=== PATIENT | male | born 2005 | race African-American/Black ===

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

== ENCOUNTER 2023-11-05 12:58 | Outpatient (CLI) | payer BC, SELFPAY ==
--- NOTE | 2023-11-05 13:00 | US_ITS ---
Patient: RAISA HUMPHRIES Facility:?[facility] Patient ID:?[id number] Site Patient ID:?[id number]. Site :?[id number] Study:?US-Abdomen/Pelvis HERNIA / RT, SUPRAPUBIC-11/05/2023 1:35:41 PM Ordering Physician:?SHIN CHAVARRIA M.D. Final Report: Indication: Pain to the right of midline in the suprapubic region, concern for hernia Technique: Ultrasound soft tissue, nonvascular Comparison: None Findings/impression : Sonographic evaluation of the soft tissues at the area of interest in the suprapubic region to the right of midline demonstrates no abnormalities. There is no hernia, mass/lesion, abnormal fluid collection/edema, or abnormal vascularity. The subcutaneous fat and abdominal musculature are unremarkable in appearance. Dictated by Seng Moya MD @ 11/05/2023 5:52:56 PM Signed by:?Seng Moya MD @11/05/2023 5:52:56 PM (Electronic Signature)
== END 2023-11-05 12:59 | disposition home or self-care (01) ==
PROVIDERS: PCP Physician Assistant Surgical; Visit Provider Internal Medicine
DX: R10.9 Unspecified abdominal pain (principal)
CPT/HCPCS: 76857